=== PATIENT | male | born 1970 | race Caucasian/White ===

== ENCOUNTER 2018-11-28 07:53 | Emergency (ER) | payer SELFPAY ==
[2018-11-28 08:12] VITALS: BP 135/89
[2018-11-28] MEDS ORDERED: Fluorescein Sodium TOPICAL* 1 MG TEST STRIP OPHTHALMIC ONE (08:22)
[2018-11-28] MEDS ORDERED: Tetracaine 0.5% OPTH.SOL 4 ML* 1 DROP BTL RIGHT EYE ONE (08:22)
--- NOTE | 2018-11-28 08:25 | UC ---
Eye Complaint HPI - HPI Summary HPI Summary: 48-year-old male comes in with chief complaint of right eye pain. Yesterday he got poked in the right eye with a wooden stick. Hurt right away. He's had pain all night. He's had tearing. Pain is worse when he opens and closes eyelid. He has swelling of the eyelid. His right I vision does feel blurred. Does not wear contacts. He does wear glasses. - History of Current Complaint Chief Complaint: UCEye Stated Complaint: RT EYE INJURY Time Seen by Provider: 11/28/18 08:22 Pain Intensity: 8 - Allergies/Home Medications Allergies/Adverse Reactions: Allergies Allergy/AdvReac Type Severity Reaction Status Date / Time No Known Allergies Allergy Verified 11/28/18 08:07 Home Medications: Home Medications Acetaminophen [Acetaminophen Extra Strength] 1,000 mg PO Q6H PRN 11/28/18 [ History Confirmed 11/28/18] Non Drowsy Allergy Medication 1 tab PO DAILY 11/28/18 [History] PMH/Surg Hx/FS Hx/Imm Hx Previously Healthy: Yes - Surgical History Surgical History: None - Family History Known Family History: Positive: None - Social History Alcohol Use: Occasionally Substance Use Type: None Smoking Status (MU): Heavy Every Day Tobacco Smoker Type: Cigarettes Amount Used/How Often: 1 PPD Review of Systems All Other Systems Reviewed And Are Negative: Yes Constitutional: Positive: Negative Skin: Positive: Other - see hpi Eyes: Positive: Blurred Vision, Drainage, Eye Redness ENT: Positive: Negative Respiratory: Positive: Negative Cardiovascular: Positive: Negative Gastrointestinal: Positive: Negative Motor: Positive: Negative Neurovascular: Positive: Negative Musculoskeletal: Positive: Negative Neurological: Positive: Negative Psychological: Positive: Negative Is Patient Immunocompromised?: No Physical Exam Triage Information Reviewed: Yes Appearance: Well-Appearing, No Pain Distress, Well-Nourished Vital Signs: Initial Vital Signs Temp 98.3 F 11/28/18 08:08 Pulse 86 11/28/18 08:08 Resp 16 11/28/18 08:08 BP 135/89 11/28/18 08:08 Pulse Ox 99 11/28/18 08:08 Vital Signs Reviewed: Yes Eyes: Positive: Conjunctiva Inflamed, Discharge, Other: - 5MM UPTAKE OF FLUORESCEIN DIRECTLY OVER THE RIGHT PUPIL. NO FB SEEN. NO HYPHEMA. GLOBE APPEARS INTACT. UPPER AND LOWER EYELIDS SWOLLEN. Neck: Positive: Supple Respiratory: Positive: No respiratory distress Musculoskeletal: Positive: Strength Intact, ROM Intact Neurological Exam: Normal Neurological: Positive: Alert, Muscle Tone Normal Psychological Exam: Normal Psychological: Positive: Normal Response To Family, Age Appropriate Behavior Skin Exam: Normal Eye Complaint Course/Dx - Course Course Of Treatment: Patient has a corneal abrasion right over his pupil. On my examination the globe appears intact. Go to start the patient on tobramycin and have him follow -up with ophthalmology due to the size of the corneal abrasion. - Differential Dx/Diagnosis Provider Diagnosis: Corneal abrasion, right Discharge - Sign-Out/Discharge Documenting (check all that apply): Patient Departure All imaging exams completed and their final reports reviewed: No Studies - Discharge Plan Condition: Stable Disposition: HOME Patient Education Materials: Corneal Abrasion (ED) Referrals: Melinda Liu MD [Medical Doctor] - Will Lopes MD [Medical Doctor] - [facility] [Provider Group] Additional Instructions: FOLLOW UP WITH OPHTHALMOLOGY IN THE NEXT 1-2 DAYS. GET RECHECKED SOONER IF YOUR CONDITION WORSENS OR ANY QUESTIONS OR CONCERNS. - Billing Disposition and Condition Condition: STABLE Disposition: Home
[2018-11-28] MEDS ORDERED: Tobramycin 0.3% OPHTH.SOL* 5 ML BOT (regular eye drops) RIGHT EYE ONE (08:39)
== END 2018-11-28 08:49 | disposition home or self-care (01) ==
LOC: UCCORT 07:53
DX: S05.01XA Injury of conjunctiva and corneal abrasion without foreign body, right eye, initial encounter (principal); W22.8XXA Striking against or struck by other objects, initial encounter; Y92.9 Unspecified place or not applicable; F17.210 Nicotine dependence, cigarettes, uncomplicated
CPT/HCPCS: 99212; A9270-GY; G0463

== ENCOUNTER 2019-05-01 08:16 | Emergency (ER) | payer SELFPAY ==
[2019-05-01 08:35] VITALS: BP 131/81
[2019-05-01] MEDS ORDERED: Tetracaine 0.5% OPTH.SOL 4 ML* 1 DROP BTL RIGHT EYE ONE (08:48)
[2019-05-01] MEDS ORDERED: Fluorescein Sodium TOPICAL* 1 MG TEST STRIP OPHTHALMIC ONE (08:49)
--- NOTE | 2019-05-01 09:00 | UC ---
Eye Complaint HPI - HPI Summary HPI Summary: 49 yo with one week history of right eye pain, photophobia and discharge. Symptoms have been progressing over the week. Until yesterday, he had morning symptoms lasting for about 15 minutes, but yesterday he developed increasing redness and pain such that he could not sleep last night. No associated headache or fever or symptoms of systemic illness. He reports that he has had recurrent episodes of dry scratchy eyes off and on for years, but does not follow up regularly with ophthalmology. - History of Current Complaint Chief Complaint: UCEye Stated Complaint: RT EYE COMPLAINT Time Seen by Provider: 05/01/19 08:48 Hx Obtained From: Patient Onset/Duration: Gradual Onset, Lasting Days Timing: Constant Pain Intensity: 8 - Allergies/Home Medications Allergies/Adverse Reactions: Allergies Allergy/AdvReac Type Severity Reaction Status Date / Time No Known Allergies Allergy Verified 05/01/19 08:35 Home Medications: Home Medications Nicotine PATCH 21 MG/24 HR* 21 mg TRANSDERM DAILY 05/01/19 [History Confirmed ] PMH/Surg Hx/FS Hx/Imm Hx Previously Healthy: Yes - Smoker - Surgical History Surgical History: None - Family History Known Family History: Positive: None - No history of glaucoma or eye disease. - Social History Occupation: Employed Full-time Lives: With Family Alcohol Use: Occasionally Substance Use Type: None Smoking Status (MU): Current Some Day Smoker Type: Cigarettes Amount Used/How Often: trying to quid Review of Systems All Other Systems Reviewed And Are Negative: Yes Constitutional: Positive: Negative Skin: Positive: Negative Eyes: Positive: Blurred Vision, Drainage, Eye Redness, Photophobia ENT: Positive: Negative Respiratory: Positive: Negative Cardiovascular: Positive: Negative Genitourinary: Positive: Negative Motor: Positive: Negative Neurovascular: Positive: Negative Musculoskeletal: Positive: Negative Neurological: Positive: Negative Psychological: Positive: Negative Is Patient Immunocompromised?: No Physical Exam Triage Information Reviewed: Yes Appearance: Well-Appearing, Pain Distress - moderate, severely photophobic, wearing dark glasses. Vital Signs: Initial Vital Signs Temp 98.9 F 05/01/19 08:31 Pulse 88 05/01/19 08:31 Resp 16 05/01/19 08:31 BP 131/81 05/01/19 08:31 Pulse Ox 100 05/01/19 08:31 Eye Exam: Other - Mild upper lid swelling. Pupils 1-2 mm and right is poorly reactive. Applied 2 drops of tetracaine with relief of pain. Eyes: Positive: Conjunctiva Inflamed - Marked bogginess with discharge., Other: - Large central corneal abrasion with fluorescein uptake. ENT: Positive: Pharynx normal Neck exam: Normal Respiratory: Positive: Lungs clear Cardiovascular Exam: Normal Musculoskeletal Exam: Normal Neurological Exam: Normal Psychological Exam: Normal Skin Exam: Normal Eye Complaint Course/Dx - Course Course Of Treatment: Discussed presence of corneal abrasion, but the decreased pupil reactivity and severity raise concern. Call to Dr. Liu's office, and she will see him today at noon for evaluation. - Differential Dx/Diagnosis Differential Diagnosis/HQI/PQRI: Conjunctivitis, Corneal Abrasion, Uveitis Provider Diagnosis: Corneal abrasion, right Discharge ED - Sign-Out/Discharge Documenting (check all that apply): Patient Departure All imaging exams completed and their final reports reviewed: No Studies - Discharge Plan Condition: Stable Disposition: HOME Patient Education Materials: Corneal Abrasion (ED) Referrals: No Primary Care Phys,NOPCP [Primary Care Provider] - Melinda Liu MD [Medical Doctor] - Additional Instructions: Dr. Liu will see you today for evaluation of your eye, due to the severity of the abrasion with the concern that there appears to be significant eye inflammation. Dr. Liu will see you at noon today, but arriving a bit early for paper work is requested. - Billing Disposition and Condition Condition: STABLE Disposition: Home
== END 2019-05-01 09:24 | disposition home or self-care (01) ==
LOC: UCCORT 08:16
DX: S05.01XA Injury of conjunctiva and corneal abrasion without foreign body, right eye, initial encounter (principal); F17.210 Nicotine dependence, cigarettes, uncomplicated; X58.XXXA Exposure to other specified factors, initial encounter; Y92.9 Unspecified place or not applicable
CPT/HCPCS: 99211; A9270-GY; G0463

== ENCOUNTER 2024-04-25 05:56 | Observation (INO) ==
[~2024-04-25 05:56] MED LIST: Bupivacaine 0.25% SDV 30 ML ONE; HYDROmorphone 1 MG/1 ML SYRINGE IV PRN; Naloxone 0.4 mg VIAL 0.4 mg/ml 1 ml VIAL IV PRN; Ondansetron 4 mg VIAL 2 MG/ML 2 ml VIAL IV PRN
[2024-04-25] MEDS ORDERED: ceFAZolin 2 GM PREMIX 2 GM/50 ML BAG ONE (06:16)
[2024-04-25] MEDS: Buffered Lidocaine 1% SYRIN 1 ml INTRADERM ONE (06:36)
[2024-04-25] MEDS ORDERED: fentaNYL 100 mcg/2 ml 50 MCG/ML VIAL ONE ×3 (07:07→12:40)
[2024-04-25] MEDS ORDERED: Lidocaine 2% PF 5 ML VIAL ONE (07:07)
[2024-04-25] MEDS ORDERED: Rocuronium 50 mg VIAL 10 mg/ml 5 ml VIAL (50 mg) ONE ×2 (07:07→09:33)
[2024-04-25] MEDS ORDERED: Propofol 10 MG/ML 20 ML BTL ONE ×2 (07:07→11:41)
[2024-04-25] MEDS ORDERED: Midazolam 2 mg/2 ml VIAL 1 mg/ml 2 ml VIAL (2 mg) ONE ×2 (07:08→08:16)
[2024-04-25] MEDS ORDERED: Bupivacaine 0.25% SDV 30 ML ONE (07:09)
[2024-04-25 07:20] LABS: Rapid COVID-19 Molecular Undetected (Undetected)
[2024-04-25] MEDS ORDERED: Ondansetron 4 mg VIAL 2 MG/ML 2 ml VIAL IV PRN (07:24)
[2024-04-25] MEDS ORDERED: Albuterol 2.5mg/3 ml (0.083%) NEB.SOLN INH PRN (07:24)
[2024-04-25] MEDS ORDERED: Albuterol HFA INHALER 8 gm MDI INH PRN (07:24)
[2024-04-25] MEDS ORDERED: Ondansetron 4 mg VIAL 2 MG/ML 2 ml VIAL ONE (07:52)
[2024-04-25] MEDS ORDERED: Dexamethasone IV 4 MG/ML VIAL 1 ml VIAL ONE (07:52)
[2024-04-25] MEDS ORDERED: KETAMINE HCL 10 MG/ML 20 ml VIAL (200 MG) ONE (08:01)
[2024-04-25] MEDS ORDERED: Phenylephrine 40 mcg/mL 10mL (400mcg) SYRINGE ONE (11:41)
[2024-04-25] MEDS ORDERED: ceFAZolin VIAL VIAL ONE (12:20)
[2024-04-25] MEDS: fentaNYL 100 mcg/2 ml 50 MCG/ML VIAL IV PRN (12:46)
[2024-04-25] MEDS ORDERED: fentaNYL 250 mcg/5 ml 50 MCG/ML 5 ml VIAL (250 MCG) ONE (13:33)
[2024-04-25 13:57] LABS: ABS Lymphocytes 0.7 10^3/uL (1.0-4.8); ABS Monocytes 0.2 10^3/uL (0.0-1.1); ABS Neutrophils 12.3 10^3/uL (1.5-7.6); ABS Nucleated RBC 0.01 10^3/ul; Hematocrit 44.6 % (38-53); Lymphocyte % 5.2 %; Mean Corpuscular Hemoglobin 29.6 pg (27-33); Mean Corpuscular Hgb Conc 33.7 g/dL (31-36); Mean Corpuscular Volume 87.9 fL (80-97); Mean Platelet Volume 7.8 fL (7.5-11.2); Nucleated Red Blood Cells % 0.1 %/100WBC (0.0-0.8); Platelet Count 246 10^3/uL (150-450); Red Blood Count 5.07 10^6/uL (4.06-5.63); Red Cell Distribution Width 13.4 % (12-17); White Blood Count 13.2 10^3/uL (3.6-10.2)
[2024-04-25 14:38] LABS: Calcium 8.4 mg/dL (8.6-10.3); Creatinine, Serum 1.13 mg/dL (0.67-1.17); Potassium 4.5 mmol/L (3.5-5.0); eGFR CKD-EPI 76.3 (>60)
[2024-04-25] MEDS: NS 0.9% 1000 ml BAG 1,000 ML IV SCH (15:46)
[2024-04-25] MEDS: Magnesium Hydroxide LIQ 30 ML UDC PO SCH (17:37)
[2024-04-25] MEDS: Neomycin/Polym/Bacit TOP OINT 15 GM TOPICAL SCH (17:37)
[2024-04-25] MEDS: BUPIVACAINE **LIPOSOME/PF 13.3 MG/ML (266MG/ 20ML) VIAL (RESTRICTED) INFIL ONE ×2 (18:29)
[2024-04-25] MEDS: Acetaminophen IV 1 GM/100ML 1,000 MG/100 ML BAG IV ONE (18:32)
[2024-04-25] MEDS: Lactated Ringers 1000 ml BAG 1,000 ML IV SCH (18:33)
[2024-04-25] MEDS: Scopolamine 1 mg/72hr PATCH TRANSDERM ONE (18:33)
[2024-04-26 05:39] VITALS: BP 119/75
[2024-04-26 07:52] LABS: ABS Lymphocytes 1.8 10^3/uL (1.0-4.8); ABS Monocytes 0.9 10^3/uL (0.0-1.1); ABS Neutrophils 6.8 10^3/uL (1.5-7.6); ABS Nucleated RBC 0.01 10^3/ul; Eosinophil % 0.1 %; Hematocrit 39.7 % (38-53); Hemoglobin 13.5 g/dL (13.2-16.3); Lymphocyte % 19.2 %; Mean Corpuscular Hemoglobin 29.9 pg (27-33); Mean Corpuscular Hgb Conc 34.1 g/dL (31-36); Mean Corpuscular Volume 87.9 fL (80-97); Mean Platelet Volume 7.7 fL (7.5-11.2); Nucleated Red Blood Cells % 0.1 %/100WBC (0.0-0.8); Platelet Count 256 10^3/uL (150-450); Red Blood Count 4.52 10^6/uL (4.06-5.63); Red Cell Distribution Width 13.5 % (12-17); White Blood Count 9.6 10^3/uL (3.6-10.2)
[2024-04-26 08:29] LABS: Calcium 8.1 mg/dL (8.6-10.3); Creatinine, Serum 0.9 mg/dL (0.67-1.17); Potassium 4.2 mmol/L (3.5-5.0); eGFR CKD-EPI 100.2 (>60)
[2024-04-26] MEDS: DULoxetine DR 60 mg CAP PO SCH (08:35)
== END 2024-04-26 20:58 | disposition home or self-care (01) ==
LOC: AA 05:56 → INTOOBSV 05:56 → SSU 14:26
PROVIDERS: ADMIT Urology; ATTEND Urology